=== PATIENT | male | born 1945 | race Caucasian/White ===

== ENCOUNTER → 2017-04-09 | Outpatient (CLI) | payer OTHER | END | disposition home or self-care (01) | LOC: C.LABSPEC 10:18 | PROVIDERS: ATTEND Urology | DX: N39.0 Urinary tract infection, site not specified (principal) ==

== ENCOUNTER → 2017-06-15 | Outpatient (CLI) | payer OTHER, MEDICARE ==
[~2017-06-15] MED LIST: AMLODIPINE PO; ASPI81TA28 PO; BUPRTAB51 PO; CIPR-255 PO; DIOVAN PO; DUTA0.5C PO; OXYCODONE PO; PHEN-775 PO; SENNTAB23 PO; SIMV5TAB2 PO; TADA10TA PO; TAMS0.4C38 PO
--- NOTE | 2017-06-15 11:49 | DIAGNOSTIC IMAGING REPORT ---
CHEST 2 VIEWS ROUTINE CLINICAL HISTORY: D49.4 Bladder [id number] PREOPERATIVE CHEST COMPARISON STUDY: No previous studies for comparison. FINDINGS: The cardiac and mediastinal contours are normal. There is no evidence of focal pulmonary consolidation. There is no evidence of failure. No pleural effusions are visualized.[ IMPRESSION: No active disease in the chest. Electronically signed by: Arjun Lees M.D. 06/15/2017 11:48 AM Dictated Date/Time: 06/15/2017 11:48 AM
[2017-06-15 12:19] LABS: BASO % 0.7 %; BASO ABS # 0.05 K/uL (0-0.2); EOS % 2.8 %; HEMATOCRIT 42.3 % (42-52); HEMOGLOBIN 14.2 g/dL (14.0-18.0); IG# 0.03 K/uL (0.00-0.02); LYMPH % 23.3 %; LYMPH ABS # 1.65 K/uL (1.2-3.4); MEAN CELL VOLUME 88.1 fL (80-100); MEAN CORPUSCULAR HEMOGLOBIN 29.6 pg (25-34); MEAN CORPUSCULAR HGB CONC 33.6 g/dl (32-36); MEAN PLATELET VOLUME 10.6 fL (7.4-10.4); MONO % 9.9 %; NEUT % 62.9 %; NEUT ABS # 4.45 K/uL (1.4-6.5); PLATELET COUNT 247 K/uL (130-400); RED CELL DISTRIBUTION WIDTH CV 13.4 % (11.5-14.5); RED CELL DISTRIBUTION WIDTH SD 43.2 fL (36.4-46.3); WHITE BLOOD COUNT 7.08 K/uL (4.8-10.8)
[2017-06-15 12:39] LABS: BLOOD UREA NITROGEN 15 mg/dl (7-18); CALCIUM 9.3 mg/dl (8.5-10.1); CARBON DIOXIDE 27 mmol/L (21-32); CREATININE 1.15 mg/dl (0.60-1.40); GLUCOSE 98 mg/dl (70-99); POTASSIUM 4.2 mmol/L (3.5-5.1); SODIUM 138 mmol/L (136-145)
--- NOTE | 2017-06-29 12:55 | CODING QUERY MEDICAL NECESSITY ---
CQSUPPORTING DIAGNOSIS NEEDED A supporting diagnosis is required for the test/procedure performed on this patient in order for us to be reimbursed by the patient's insurance. Please provide a supporting diagnosis for the following test/procedure listed below next to the test name along with your signature. *If there is no additional diagnosis for this patient that would support the following test/procedure please document that below next to the test/procedure. Test(s)/Procedure(s) that require a supporting diagnosis: DOS 06/15/17 PROSTATE SPECIFIC TEST URINE CULTURE TESTING Provider Signature: Date: Thank you Manjula Rendon Health Information Management Once completed, please kindly fax back to [phone] For questions please call [phone]
== END | disposition home or self-care (01) ==
LOC: C.CPL 10:58
PROVIDERS: ATTEND Urology
DX: D49.4 Neoplasm of unspecified behavior of bladder (principal)

== ENCOUNTER → 2017-06-21 | Day surgery (SDC) | payer OTHER, MEDICARE ==
[2017-06-18 08:23] VITALS: BMI 25.0
[~2017-06-21] VITALS: Ht 172.7 cm; Wt 75.0 kg
[~2017-06-21] MED LIST changes: +ATROPINE SULFATE 0.1 MG/ML 5ML SYR IV PRN; +CIPROFLOXACIN / D5W 400 MG IV SCH; +DEXAMETHASONE SOD INJ 4 MG/ML VIAL ONE; +EpHEDrine SULFATE 50MG/5ML SYR ONE; +EpHEDrine SULFATE INJ 50 MG/ML AMP IV PRN; +FENTANYL CITRATE INJ 50 MCG/1 ML 2 ML VIAL IV PRN; +FENTANYL CITRATE INJ 50 MCG/1 ML 2 ML VIAL ONE; +HYDROmorphone INJ 1 MG/ML SYR IV PRN; +LACTATED RINGER'S 1000ML 1,000 ML IV SCH; +LIDOCAINE HCL 2% 2 ML VIAL (20MG/ML) ONE; +MIDAZOLAM HCL 1 MG/ML 2ML VIAL ONE; +ONDANSETRON INJ 2 MG/ML 2 ML VIAL IV PRN; +ONDANSETRON INJ 2 MG/ML 2 ML VIAL ONE; +OXYCODONE/ACETAMINOPHEN 5-325 TAB PO PRN; +PHENAZOPYRIDINE HCL 200 MG TAB PO PRN; +PHENYLEPHRINE 100MCG/ML 5ML SYR IV PRN; +PROPOFOL IV EMULSION 10 MG/ML 20 ML VIAL IV ONE
[2017-06-21 07:40] VITALS: BP 150/74; PULSE 62; TEMP 36.6; O2SAT 97; Ht 172.7 cm; Wt 75.0 kg
--- NOTE | 2017-06-21 08:28 | History & Physical Bridge Note ---
H&P Re-Evaluation Bridge Note: I have examined the patient, reviewed the History & Physical and in the interval since the performance of the History & Physical I have noted the following changes of clinical significance: No changes noted
--- NOTE | 2017-06-21 08:54 | Discharge Instructions ---
Discharge Instructions Date of Service Jun 21, 2017. Admission Reason for Admission: Benign Prostatic Hypertrophy, Bladder Tumor Discharge Discharge Diagnosis / Problem: BPH and bladder lesion Discharge Goals Goal(s): Improve function, Improve disease control, Diagnostic testing, Therapeutic intervention Activity Recommendations Activity Limitations: as noted below Lifting Limitations: no more than 25 pounds, gradually increase as tolerated Exercise/Sports Limitations: rest today, gradually increase as tolerated May Resume Sexual Activity: after follow-up appointment Shower/Bathe: tomorrow Driving or Machine Use: resume 1 day after discharge . Instructions / Follow-Up Instructions / Follow-Up As scheduled in office for postoperative check Current Hospital Diet Patient's current hospital diet: Discharge Diet Recommended Diet: Regular Diet (good fluid intake) Procedures Procedures Performed: Cystoscopy, biopsy, fulguration, TURP Pending Studies Studies pending at discharge: yes List of pending studies: Pathology report Medical Emergencies . Who to Call and When: Medical Emergencies: If at any time you feel your situation is an emergency, please call 911 immediately. . Non-Emergent Contact Non-Emergency issues call your: Urologist Call Non-Emergent contact if: you have a fever, temperature is above 101, your pain is not controlled, your pain is worsening, your pain is unusual for you, your pain is concerning you, you have any medication questions . . "Provider Documentation" section prepared by Jose Elias Wilson. . [place] Drug Monitoring Program Search Results: patient reviewed within database, see additional documentation (regular Rx for meds)
--- NOTE | 2017-06-21 09:43 | [facility] Post Operative Brief Note ---
Immediate Operative Summary Operative Date Jun 21, 2017. 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 Jose Elias Wilson Broomcorn Thresher Surgeon(s) NA Estimated Blood Loss 10 ml Findings Consistent with Post-Op Diagnosis Specimens Permanent A. Right Bladder Lesion B. Prostate Chips Drains 22 fr 10 cc H2O Anesthesia Type General Complication(s) none Disposition Accompanied Pt To Recover: no Disposition: Recovery Room / PACU
--- NOTE | 2017-06-21 10:26 | Anesthesiology Progress Note ---
Anesthesia Post Op Note Date & Time Jun 21, 2017 at 10:26 Vital Signs Pain Intensity: 0 Vital Signs Past 12 Hours Date Time Temp Pulse Resp B/P (MAP) Pulse Ox O2 Delivery O2 Flow Rate FiO2 06/21/17 10:20 63 18 132/84 98 Room Air 06/21/17 10:10 70 14 108/69 99 Oxymask 10 06/21/17 10:00 61 12 113/60 98 Oxymask 10 06/21/17 09:54 36.4 60 12 98/60 98 Oxymask 10 06/21/17 07:40 36.6 62 18 150/74 (99) 97 Room Air Notes Mental Status: alert / awake / arousable, participated in evaluation Pt Amnestic to Procedure: Yes Nausea / Vomiting: adequately controlled Pain: adequately controlled Airway Patency, RR, SpO2: stable & adequate BP & HR: stable & adequate Hydration State: stable & adequate Anesthetic Complications: no major complications apparent Pt awake, doing well, no complaints. VSS.
[2017-06-21 10:35] VITALS: BP 128/79; PULSE 64; TEMP 36.4; O2SAT 95
[2017-06-21 11:05] VITALS: BP 131/64; PULSE 63; O2SAT 95
[2017-06-21 11:35] VITALS: BP 119/68; PULSE 60; O2SAT 95
[2017-06-21 12:30] VITALS: BP 117/66; PULSE 74; TEMP 36.3; O2SAT 97
--- NOTE | 2017-06-23 08:41 | [facility] Operative Report ---
Operative Report Operative Date Jun 23, 2017. 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 Jose Elias Wilson Morning Caregiver Surgeon(s) NA Estimated Blood Loss 10 ml Findings Abnormal right-sided mucosa biopsied and fulgurated, no evidence of bladder perforation, excellent hemostasis and opening of the prostatic fossa after completion of resection. Specimens Permanent A. Right Bladder Lesion B. Prostate Chips Drains 22 fr 10 cc H2O Anesthesia Type General Complication(s) none Disposition no Recovery Room / PACU Indications Patient is a 71-year-old male who is here today for biopsy of his abnormal cystoscopy findings and resection of his prostate tissue regrowth. Please see H&P for further details. Intravenous ciprofloxacin is provided for antibiotic coverage and SCDs used for DVT prophylaxis Description of Procedure Patient was properly identified and brought into the operative room after identification for proper consent in the chart. General anesthesia with laryngeal mask was initiated and patient the standard fashion for this procedure. Full timeout procedure was followed. 22 [place] rigid cystoscope was introduced into the bladder or urethra, regrowth of prostate tissue from the 12:00 to 3 o'clock position. Bladder was entered and ureteral orifices were noted to be in the normal an area of borderline bladder mucosa on the right bladder wall consistent with office cystoscopy findings were noted. No other abnormal areas were noted within the bladder. Cold cup bladder biopsies were taken from sales representative consultant areas of abnormal bladder mucosa on the right- hand side. These were sent for permanent pathologic analysis. Cystoscope was removed and monopolar resectoscope was introduced into the bladder. Using rollerball cautery the area of abnormal mucosa on the right bladder wall was fulgurated for excellent hemostasis and with ablation of all abnormal appearing mucosa. After this a monopolar loop was used to resect the prostate regrowth present within the fossa. Again, the majority was in the right upper quadrant of the prostate gland. After this was complete prostate chips were irrigated free of the bladder and sent for pathologic analysis. Excellent hemostasis was ensured using rollerball within the prostatic fossa. Bladder was partially distended and resectoscope was removed. 20 [place] Baker catheter was placed over a catheter guide irrigant. 10 cc of sterile water were placed within the balloon catheter was placed to gravity drainage. Anesthesia was reversed and patient was transferred to the recovery room in stable condition. Discharge care: Patient will be discharged after a trial of void in the recovery room. Prescription for ciprofloxacin and Pyridium was provided. Outpatient appointments are confirmed. Patient is instructed to contact our office should he note any fevers, chills, nausea, vomiting or other difficulties after his surgery. I attest to the content of the Intraoperative Record and any orders documented therein. Any exceptions are noted below.
== END | disposition home or self-care (01) ==
LOC: C.ACU 07:13
PROVIDERS: ATTEND Urology
DX: N40.1 Benign prostatic hyperplasia with lower urinary tract symptoms (principal); D49.4 Neoplasm of unspecified behavior of bladder; N13.8 Other obstructive and reflux uropathy; N52.9 Male erectile dysfunction, unspecified; N39.0 Urinary tract infection, site not specified; G47.33 Obstructive sleep apnea (adult) (pediatric); K21.9 Gastro-esophageal reflux disease without esophagitis; E78.5 Hyperlipidemia, unspecified; I10 Essential (primary) hypertension; Z82.49 Family history of ischemic heart disease and other diseases of the circulatory system; Z79.82 Long term (current) use of aspirin